=== PATIENT | male | born 1985 | race African-American/Black ===

== ENCOUNTER 2016-06-08 09:58 | Emergency (ER) | payer OTHER ==
[~2016-06-08] VITALS: Ht 188 cm; Wt 79.4 kg
[~2016-06-08 09:58] MED LIST: FLEXERIL10 MG PO; TYLENOL #31 TAB PO
--- NOTE | 2016-06-08 11:08 | ED GI/GU/ABDOMINAL COMPLAINT ---
History of Present Illness General Chief Complaint: Male Genitourinary Problems Stated Complaint: STD? Source: patient Exam Limitations: no limitations Vital Signs & Intake/Output Vital Signs & Intake/Output Vital Signs Date Time Temp Pulse Resp B/P Pulse O2 O2 Flow FiO2 Ox Delivery Rate 06/08 1005 97.8 84 18 134/85 100 Room Air Allergies Coded Allergies: NO KNOWN ALLERGIES (12/15/14) Reconcile Medications No Known Home Medications Triage Note: STATES HIS CONDOM BROKE DURING INTERCOURSE 5 DAYS AGO, PT IS WORRIED HE MAY HAVE AN STD. DENIES PENILE DRAINAGE OR URINARY SXS. Triage Nurses Notes Reviewed? yes HPI: Patient is a 30 year old male presents concerned about possible STD exposure. Patient was having sexual intercourse with a new female partner on Tuesday when the condom broke. Pain is 0/10. Patient does not know any of the sexual history or STD history of the sexual partner. Denies dysuria, penile discharge, testicular pain, fevers, chills, nausea, vomiting. Past History Travel History Traveled to [place] past 21 day No Medical History Any Pertinent Medical History? 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 No Review of Systems Review of Systems Constitutional: Denies: chills, fever. GI: Denies: abdominal pain. Genitourinary: Reports: see HPI. Musculoskeletal: Reports: no symptoms. Skin: Denies: rash. Neurological/Psychological: Reports: no symptoms. Hematologic/Endocrine: Reports: no symptoms. Immunologic/Allergic: Reports: no symptoms. Physical Exam Physical Exam General Appearance: well developed/nourished, alert, awake Head: atraumatic, normal appearance Eyes: Bilateral: normal appearance, PERRL, EOMI. Ears, Nose, Throat, Mouth: hearing grossly normal Neck: normal inspection, full range of motion Respiratory: no respiratory distress Gastrointestinal: soft, non-tender Male Genitals: normal genitalia, no urethral discharge, no testicular or epididymal tenderness. No visible skin lesions. Back: normal range of motion Extremities: normal range of motion Neurologic/Psych: no motor/sensory deficits, awake, alert, oriented x 3, normal gait, normal mood/affect Skin: intact, normal color, warm/dry Core Measures ACS in differential dx? No Severe Sepsis Present: No Septic Shock Present: No Progress Differential Diagnosis: STD, urethritis, UTI/pyelo Plan of Care: Orders Procedure Date/time Status CULTURE,URINE 06/08 1010 Active URINALYSIS 06/08 1010 Complete CHLAMYDIA-GC DNA PROBE 06/08 1009 Active Current Medications Sig/Spenser Start time Last Medication Dose Stop Time Status Admin Azithromycin 1,000 MG ONCE ONE 06/08 1130 UNVr (Zithromax) 06/08 1131 Ceftriaxone Sodium 250 MG ONCE ONE 06/08 1130 UNir (Rocephin) 06/08 1131 Laboratory Tests 06/08/16 1020: Urine Color YEL, Urine Clarity CLEAR, Urine pH 6.0, Ur Specific Palmer >= 1.030 , Urine Protein NEG, Urine Ketones NEG, Urine Nitrite NEG, Urine Bilirubin NEG, Urine Urobilinogen 0.2, Ur Leukocyte Esterase NEG, Ur Microscopic EXAM NOT REQUIRED, Urine Hemoglobin NEG, Urine Glucose NEG Microbiology 06/08 1020 URINE ROUT: Urine Culture - RECD 06/08 1020 URINE ROUT: GC DNA Probe - RECD 06/08 1020 URINE ROUT: Chlamydia DNA Probe (TWYLA) - RECD 06/08/2016 11:19:53 AM: No dysuria, penile pain, testicular pain, penile discharge. Discussed with patient waiting for the results of the gonorrhea/ chlamydia cultures. Patient requesting treatment today. Ceftriaxone and azithromycin ordered. (ESTELA GRANDE) Initial ED EKG: none Departure Departure Time of Disposition: 112 Disposition: HOME OR SELF CARE Condition: Stable Clinical Impression Primary Impression: Possible exposure to STD Referrals: GOLD ALEXANDER DO, MD,IVET PRYOR MD,SINGH PATIENT HAS NO PRIMARY CARE DR (PCP/Family) Additional Instructions: Return to the ER if fevers, penile pain, testicular pain or worsening of symptoms. Follow up with one of the primary doctors listed in your discharge paperwork to establish a doctor. Call for appointment. Departure Forms: Customer Survey General Discharge Information Prescriptions: Current Visit Scripts No Known Home Medications
[2016-06-08 11:32] VITALS: BP 125/73
== END 2016-06-08 11:34 ==
LOC: ERH 09:58
DX: Z20.2 Contact with and (suspected) exposure to infections with a predominantly sexual mode of transmission (principal)
CPT/HCPCS: 81003; 87086; 87491; 87591; 96372; J0696

== ENCOUNTER 2016-07-28 12:53 | Emergency (ER) | payer OTHER ==
[~2016-07-28] VITALS: Ht 190.5 cm; Wt 79.4 kg
[2016-07-28 13:02] VITALS: BP 128/74
--- NOTE | 2016-07-28 13:17 | ED NECK/BACK PAIN COMPLAINT ---
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 yes Onset: Abrupt Duration: hour(s): (2), constant, waxing and waning Timing: recent history Quality/Severity: mild, moderate (ACHING) Location: paraspinous muscles Radiation: none Context: lifting Loss of Consciousness: no loss of consciousness Modifying Factors: movement, rest Associated Symptoms: DENIES HPI: 30-year-old male with no medical history presents to the ER for evaluation complaining of right lower back pain is radiating up into his neck since early this morning when he states he stretched to harm he believes he pulled something while attempting to prevent a case of water from pulling on a client. Patient denies any other injury he is not taken anything for symptoms. Pain is better at rest worse with change in position and movement. He denies any other complaints at this time no headache fever chills. No numbness or tingling in his arms or legs. No urinary bowel incontinence (JUNITO BOYER) Past History Travel History Traveled to [place] past 21 day No Medical History Any Pertinent Medical History? 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 No (JUNITO BOYER) Review of Systems Review of Systems Constitutional: Reports: see HPI. All Other Systems: Reviewed and Negative Comments Review of systems: See HPI, All other systems negative. Constitutional, no chills no fever, no malaise no weight loss HEENT: No visual changes no sore throat no congestion, no ear pain Cardiovascular: No chest pain , no palpitation , no orthopnea Skin: no rashes, no change in skin Respiratory: No dyspnea no cough no sputum GI: No nausea no vomiting, no diarrhea, no bloating/constipation : No dysuria No hematuria, no frequency, Muscle skeletal: No joint pain, no joint swelling, back pain, no neck pain, Neurologic: No numbness no confusion, no headache Psych: No stress no depression,. Heme/endocrine: No bruising no bleeding Immunology: No lymphadenopathy (JUNITO BOYER) Physical Exam Physical Exam General Appearance: well developed/nourished, no apparent distress, alert, awake Neck: normal inspection, supple Comments: Well-developed well-nourished person in no acute distress HEENT: Normal EENT exam; PERRL, EOMI. HEAD is atraumatic. moist mucous membranes. Neck: Supple, no lymphadenopathy, normal range of motion without pain or tenderness Back: No midline tenderness to his right-sided para number muscle tenderness to palpation, no CVA tenderness. Full range of motion Cardiovascular: Regular rate and rhythms no murmurs rubs Respiratory: No respiratory distress. Patient speaking in full complete sentences. Breath sounds clear to auscultation bilaterally: NO W/R/R Abdomen: Soft, nontender nondistended, no appreciable organomegaly. Normal bowel sounds. No rebound/guardinG Extremity: No edema, negative straight leg raise bilaterally full range of motion of extremities, normal and equal pulses bilaterally, 5 out of 5 strength noted to bilateral upper and lower extremities Neuro: Alert oriented x3, motor sensory normal. There were no obvious focal neurologic abnormalities. Skin: No appreciable rash on exposed skin, skin is warm and dry. Psych: Mood and affect is normal, memory and judgment is normal. (JUNITO BOYER) Progress Differential Diagnosis: herniated disc, myofascial strain, pyelo/UTI, sciatica, spinal cord inj, T/L spine injury, ureterolithiasis Plan of Care: Current Medications Sig/Spenser Start time Last Medication Dose Stop Time Status Admin Ibuprofen 800 MG ONCE ONE 07/28 1329 UNVr (Motrin) 07/28 1330 Patient clinically looks well. Patient has no evidence of radiculopathy. No urinary bowel dysfunction. No numbness in the genital area. Strength intact. Gross sensation intact. Patient resting comfortably and in no apparent distress. Pain is worse with range of motion. Pain is reproducible IN back with no bruising or ecchymosis noted. . Patient is to follow-up with primary care doctor. May need MRI of the lower back at some point time. No concerns for cauda equina at this point time. I considered this diagnosis but patient does not have any symptoms consistent with cauda equina. Patient has no secondary causes of back pain. No cardiac, pulmonary, or abdominal complaints. No abdominal pain on exam. Cardiac pulmonary exam within normal limits. No rashes, afebrile, denies recent weight loss, dizziness, lightheadedness I had an extensive conversation regarding need for close follow up with their primary care physician this week as well as return precautions. I answered all of their questions, they feel comfortable with the plan and follow-up care. I discussed the medications that they will receive with the patient. I gave them signs and symptoms that could indicate an adverse reaction. I have advised them to limit their activities until they can see how they respond to the medication. (JUNITO BOYER) Departure Departure Time of Disposition: 1324 Disposition: HOME OR SELF CARE Condition: Stable Clinical Impression Primary Impression: Muscle strain Referrals: PATIENT HAS NO PRIMARY CARE DR (PCP/Family) Additional Instructions: rest, interchange ice and heat. ibuprofen and flexeril as directed- this may make you drowsy. follow up with your pmd return with any concerns. these were sent to [facility]. Departure Forms: Customer Survey Employee Industrial Accident General Discharge Information Prescriptions: Current Visit Scripts Ibuprofen 1 TAB PO TID PRN pain #30 TAB Cyclobenzaprine HCl 1 TAB PO TIDPRN PRN pain #9 TAB (JUNITO BOYER) PA/HEALTH AND WELLNESS ADVISOR Co-Sign Statement Statement: ED Attending supervision documentation- [] I saw and evaluated the patient. I have also reviewed all the pertinent lab results and diagnostic results. I agree with the findings and the plan of care as documented in the PA's/HEALTH AND WELLNESS ADVISOR's documentation. [X] I have reviewed the ED Record and agree with the PA's/HEALTH AND WELLNESS ADVISOR's documentation. [] Additions or exceptions (if any) to the PAs/HEALTH AND WELLNESS ADVISOR's note and plan are summarized below: [] (GUILLERMO WALTERS,NURY Ann)
[2016-07-28] MEDS ORDERED: IBUPROFEN800 M1 PO (13:26)
[2016-07-28] MEDS ORDERED: CYCLOBENZAPRINE5 M2 PO (13:26)
== END 2016-07-28 13:41 ==
LOC: ERH 12:53
DX: S39.012A Strain of muscle, fascia and tendon of lower back, initial encounter (principal); X50.9XXA Other and unspecified overexertion or strenuous movements or postures, initial encounter; Y93.89 Activity, other specified; Y92.9 Unspecified place or not applicable

== ENCOUNTER 2016-09-30 14:21 | Emergency (ER) | payer OTHER ==
[~2016-09-30] VITALS: Ht 190.5 cm; Wt 79.4 kg
[~2016-09-30 14:21] MED LIST changes: +CYCLOBENZAPRINE5 M2 PO; +IBUPROFEN800 M1 PO
[2016-09-30 14:33] VITALS: BP 114/74
== END 2016-09-30 16:04 | disposition admitted as inpatient to this hospital (09) ==
LOC: ERH 14:21
DX: M25.522 Pain in left elbow (principal)